=== PATIENT | female | born 1990 | race Caucasian/White ===

== ENCOUNTER 2016-07-20 09:31 | Emergency (ER) | payer OTHER ==
[~2016-07-20] VITALS: Wt 65.5 kg
[2016-07-20] MEDS ORDERED: LORAZEPAM 2 MG INJ IV STA (10:58)
[2016-07-20 11:11] LABS: ADD SCAN DIFF NO
[2016-07-20 11:16] LABS: BASOPHILS % 0.3 % (0.0-2.0); EOSINOPHILS # 0.2 10^3/ul (0.0-0.5); EOSINOPHILS % 2.4 % (0.0-7.0); HEMOGLOBIN 12.1 g/dl (12.0-16.0); LYMPHOCYTES # 2.2 10^3/ul (0.8-2.9); LYMPHOCYTES % 30.8 % (15.0-51.0); MEAN CORPUSCULAR HEMOGLOBIN 27.8 pg (29.0-33.0); MEAN CORPUSCULAR HGB CONC 31.8 g/dl (32.0-37.0); MEAN CORPUSCULAR VOLUME 87.2 fl (82.0-101.0); MEAN PLATELET VOLUME 10.6 fl (7.4-10.4); MONOCYTE # 0.4 10^3/ul (0.3-0.9); MONOCYTES % 5.3 % (0.0-11.0); NEUTROPHIL # 4.3 10^3/ul (1.6-7.5); NEUTROPHILS % 60.8 % (39.0-77.0); PLATELET COUNT 266 10^3/UL (140-415); RED BLOOD COUNT 4.36 10^6/ul (4.20-5.40); RED CELL DISTRIBUTION WIDTH 13.9 % (11.5-14.5)
[2016-07-20] MEDS ORDERED: LEVE-5 PO (11:23)
[2016-07-20 11:32] LABS: POTASSIUM 3.6 mmol/L (3.5-5.1)
[2016-07-20 11:35] LABS: CREATININE 0.66 mg/dl (0.44-1.00)
[2016-07-20 11:36] LABS: CALCIUM 9.3 mg/dl (8.4-10.2)
[2016-07-20] MEDS ORDERED: HYDROmorphONE 1 MG/ML SYG IV STA (11:36)
[2016-07-20] MEDS ORDERED: SOD CHLORIDE 0.9% 1,000 ML IV STA (11:38)
--- NOTE | 2016-07-20 12:03 | ERD ---
ER Documentation Chief Complaint Date/Time DATE: 07/20/16 TIME: 12:00 Chief Complaint SEIZURE ABOUT 1 [employer] WHILE AT WORK. OFF MEDS FOR 1 MONTH. NO TRAUMA HPI Patient is a 25-year-old female with anemia and seizures who presents with a seizure. Please note the history and physical exam is limited as the patient does not remember the events that happened. The patient had a seizure while she was at work. A coworker noticed her twitching. She is supposed to take Keppra but does not take it because it makes her nauseous and her last dose was 1 month ago. She is driving. She does not currently have a primary doctor. Upon review of old medical records the patient one previous visit to the ER in 2007. She is also complaining of lower abdominal pain which she takes [place] for at home. ROS All systems reviewed and are negative except as per history of present illness. Medications Home Meds Reported Medications Levetiracetam* (Keppra*) 500 Mg Tablet, 500 MG PO BID, TAB 07/20/16 Allergies Allergies: Coded Allergies: No Known Allergy (Unverified , 07/20/16) PMhx/Soc Medical and Surgical Hx: pt denies Surgical Hx History of Surgery: No Anesthesia Reaction: No Hx Neurological Disorder: Yes (hx seizures w/o keppra x 1 month) Hx Respiratory Disorders: No Hx Cardiac Disorders: No Hx Psychiatric Problems: No Hx Miscellaneous Medical Probl: No Hx Alcohol Use: No Hx Substance Use: Yes (occassional marijuana) Smoking Status: Never smoker FmHx Family History: diabetes Physical Exam Vitals Vital Signs Date Time Temp Pulse Resp B/P Pulse Ox O2 Delivery O2 Flow Rate FiO2 07/20/16 09:38 98.6 79 20 106/71 100 Physical Exam Const: No acute distress Head: Atraumatic Eyes: Normal Conjunctiva ENT: Normal External Ears, Nose and Mouth. Neck: Full range of motion..~ No meningismus. Resp: Clear to auscultation bilaterally Cardio: Regular rate and rhythm, no murmurs Abd: Soft, lower abdominal pain on the right and left lower quadrants without rebound or guarding Skin: No petechiae or rashes Back: No midline or flank tenderness Ext: No cyanosis, or edema Neur: Awake and alert Psych: Normal Mood and Affect Result Diagram: 07/20/16 1100 07/20/16 1100 Results 24 hrs Laboratory Tests Test 07/20/16 11:00 07/20/16 11:37 White Blood Count 7.010^3/ul Red Blood Count 4.3610^6/ul Hemoglobin 12.1g/dl Hematocrit 38.0% Mean Corpuscular Volume 87.2fl Mean Corpuscular Hemoglobin 27.8pg Mean Corpuscular Hemoglobin Concent 31.8g/dl Red Cell Distribution Width 13.9% Platelet Count 74301^3/UL Mean Platelet Volume 10.6fl Neutrophils % 60.8% Lymphocytes % 30.8% Monocytes % 5.3% Eosinophils % 2.4% Basophils % 0.3% Nucleated Red Blood Cells % 0.0/100WBC Neutrophils # 4.310^3/ul Lymphocytes # 2.210^3/ul Monocytes # 0.410^3/ul Eosinophils # 0.210^3/ul Basophils # 0.010^3/ul Nucleated Red Blood Cells # 0.010^3/ul Sodium Level 140mmol/L Potassium Level 3.6mmol/L Chloride Level 103mmol/L Carbon Dioxide Level 25mmol/L Anion Gap 16 Blood Urea Nitrogen 13mg/dl Creatinine 0.66mg/dl Glucose Level 85mg/dl Calcium Level 9.3mg/dl Serum HCG, Qualitative NEGATIVE Bedside Glucose 85mg/dL Current Medications Medications (Trade) Dose Ordered Sig/Freddy Route PRN Reason Start Time Stop Time Status Last Admin Dose Admin Lorazepam (Ativan) 0.5 mg ONCE STAT IV 07/20/16 10:58 07/20/16 11:00 DC 07/20/16 11:12 Hydromorphone HCl 1 mg 1 mg ONCE STAT IV 07/20/16 11:36 07/20/16 11:37 DC 07/20/16 11:42 Sodium Chloride (NS) 1,000 ml @ 1,000 mls/hr Q1H STAT IV 07/20/16 11:38 07/20/16 12:37 07/20/16 11:42 Procedures/MDM Patient is a 25-year-old female with anemia and seizures who presents with seizure. The patient was given Ativan to prevent further seizure. I told her that she needs to be taking her Keppra or another seizure medicine to control her seizures. I told her that she cannot drive until she is cleared by the DMV. A DMV form will be sent to the DMV. Laboratory studies looked normal. The patient will be discharged and can return for any worsening symptoms. I doubt serious etiology of her abdominal pain. I believe it is an acute exacerbation of her chronic pain. I doubt appendicitis, cholecystitis, pancreatitis, or bowel obstruction. Departure Diagnosis: Primary Impression: Abdominal pain Abdominal location: lower abdomen, unspecified Qualified Code: R10.30 - Lower abdominal pain Additional Impression: Seizure Condition: Fair Patient Instructions: Abdominal Pain, Seizure, Recurrent [Adult] Referrals: [facility] YOU HAVE RECEIVED A MEDICAL SCREENING EXAM AND THE RESULTS INDICATE THAT YOU DO NOT HAVE A CONDITION THAT REQUIRES URGENT TREATMENT IN THE EMERGENCY DEPARTMENT. FURTHER EVALUATION AND TREATMENT OF YOUR CONDITION CAN WAIT UNTIL YOU ARE SEEN IN YOUR DOCTORS OFFICE WITHIN THE NEXT 1-2 DAYS. IT IS YOUR RESPONSIBILITY TO MAKE AN APPOINTMENT FOR FOLOW-UP CARE. IF YOU HAVE A PRIMARY DOCTOR --you should call your primary doctor and schedule an appointment IF YOU DO NOT HAVE A PRIMARY DOCTOR YOU CAN CALL OUR PHYSICIAN REFERRAL HOTLINE AT IF YOU CAN NOT AFFORD TO SEE A PHYSICIAN YOU CAN CHOSE FROM THE FOLLOWING [facility] [address] [facility]. [facility] [address] [facility]. [facility] [address] [facility] [facility] [address] [facility]. [facility] [address] [facility]. [facility]. [address] Additional Instructions: Call your primary care doctor TOMORROW for an appointment during the next 1-2 days.See the doctor sooner or return here if your condition worsens before your appointment time. CRIS BARRERA MD July 20, 2016 12:03
[2016-07-20 12:58] LABS: URINE BLOOD (Dip) POC 3+ (NEGATIVE)
[2016-07-20] MEDS ORDERED: ONDANSETRON (ODT) 4 MG TAB ODT STA (12:58)
[2016-07-20] MEDS ORDERED: LIDOCAINE 1% (MPF) 30 ML INJ INJ STA (12:59)
[2016-07-20] MEDS ORDERED: NITR-58 PO (12:59)
[2016-07-20] MEDS ORDERED: AZITHROMYCIN 250 MG TAB PO ONE (13:00)
[2016-07-20] MEDS ORDERED: CEFTRIAXONE 250 MG INJ IM ONE (13:00)
[2016-07-20 14:00] VITALS: BP 105/66; PULSE 89; RESP 20; TEMP 98.6
== END 2016-07-20 14:02 | disposition home or self-care (01) ==
LOC: E/R 09:31
DX: R10.31 Right lower quadrant pain (principal); R40.2252 Coma scale, best verbal response, oriented, at arrival to emergency department; R10.32 Left lower quadrant pain; R40.2142 Coma scale, eyes open, spontaneous, at arrival to emergency department; R40.2362 Coma scale, best motor response, obeys commands, at arrival to emergency department
CPT/HCPCS: 80048; 81003; 82962; 84703; 85025; 87591; J0696; J1170; J2060; J7030; 36415; 96372; 96374; 96375